=== PATIENT | female | born 1930 | race African-American/Black ===

== ENCOUNTER 2017-04-18 10:36 | Emergency (ER) | payer MEDICARE | END 2017-04-18 14:13 | disposition home or self-care (01) | LOC: D.ER 10:36 | DX: H81.10 Benign paroxysmal vertigo, unspecified ear (principal); I10 Essential (primary) hypertension; E11.9 Type 2 diabetes mellitus without complications ==

== ENCOUNTER → 2017-06-11 19:14 | Outpatient (CLI) | payer MEDICARE | END | disposition home or self-care (01) | LOC: D.LABREF 19:14 | DX: E53.8 Deficiency of other specified B group vitamins (principal) ==

== ENCOUNTER 2017-07-04 06:54 | Inpatient (IN) | payer MEDICARE ==
[2017-07-04 02:08] VITALS: BP 93/79
[2017-07-04 07:34] LABS: BASOPHILS 0.2 % (0-2); EOSINOPHILS 1.6 % (0-7); HEMATOCRIT 20.2 % (36.0-48.0); IMMATURE GRANULOCYTES 0.5 % (0-5); MCHC 30.2 g/dL (31.0-37.0); MCV 99.5 fL (80.0-100.0); MEAN PLATELET VOLUME 9.6 fL (7.4-10.4); MONOCYTES 4.1 % (2-11); NEUTROPHILS 77.6 % (40-80); PLATELET COUNT 194 10x3/uL (130-400); RBC 2.03 10x6/uL (4.00-5.40); RDW 13.6 % (11.5-14.5); WBC 9.8 10x3/uL (4.8-10.8)
[2017-07-04 07:37] LABS: HEMOGLOBIN 6.1 g/dL (12-16)
[2017-07-04 07:48] LABS: ALBUMIN 2.5 g/dL (3.4-5.0); ANION GAP 18.5 mmol/L (8-16); BILIRUBIN - TOTAL 0.1 mg/dL (0.2-1.3); CALCIUM 8.2 mg/dL (8.5-10.1); CARBON DIOXIDE 17.1 mmol/L (21.0-32.0); CREATININE - SERUM 2.5 mg/dL (0.6-1.3); POTASSIUM - SERUM 4.6 mmol/L (3.5-5.1); PROTEIN - SERUM 5.8 g/dL (6.4-8.2)
[2017-07-04 07:56] LABS: MAGNESIUM - SERUM 2.6 mg/dL (1.8-2.4); THYROID STIMULATING HORMONE 3.97 uIU/mL (0.36-3.74)
[2017-07-04 08:00] VITALS: BP 123/63
[2017-07-04 08:27] LABS: INR 1.17 (0.85-1.17); PROTIME 14.8 SECONDS (11.6-15.0)
[2017-07-04] MEDS ORDERED: NORVASC10 MG PO (09:15)
[2017-07-04] MEDS ORDERED: METFORMIN HCL500 M1 PO (09:16)
[2017-07-04] MEDS ORDERED: HYDROCHLOROTHIA25 MG PO (09:16)
[2017-07-04] MEDS ORDERED: MECLIZINE HCL25 MG PO (09:17)
[2017-07-04] MEDS ORDERED: PRAVACHOL40 MG PO (09:17)
[2017-07-04 10:02] VITALS: BP 138/68; BMI 25.1
--- NOTE | 2017-07-04 10:34 | NUR ---
22 GUAGE PIV INSERTED INTO R.FA X1 STICK FOR PTS PROTONIX DRIP. WAITING ON PHARMACY TO BRING UP. PT A&O SITTING UP IN BED RECIEVING BLOOD TRANSFUSION VIA L.FA PIV WITH DAINA CDI AND SWAB CAPS IN USE. NO REACTION NOTED YET AND VSS THROUGHOUT TRANSFUSION. AT BEDSIDE ASSESSING AND TALKING WITH PT ABOUT ISSUES. PT DENIES ANY CURRENT PAIN OR NEEDS, CL IN REACH, BED IN LOWEST, SIDE RAILS X2. WILL CPOC.
--- NOTE | 2017-07-04 10:51 | NUR ---
D/C PTS BRAND NEW PROTONIX DRIP ORDERED AND PROVIDED PT WITH NEW DOSE OF IVP PROTONIX. PT SITTING UP IN BED ALMOST FINISHED WITH FIRST BLOOD TRANSFUSION STILL WITHOUT ANY NOTED REACTIONS AND VSS. PT DENIES ANY CURRENT NEEDS. WILL CPOC.
[2017-07-04 11:00] VITALS: BP 152/63
--- NOTE | 2017-07-04 11:53 | NUR ---
FIRST UNIT OF BLOOD TRANSFUSION COMPLETED AND VSS THROUGHOUT ENTIRE TRANSFUSION. NO REACTIONS NOTED. FSBS 166 PT REC'D 2 UNITS PER SS INSULIN. TEACHING PROVIDED INSULIN IS NEW FOR HER. PT VERBALIZED UNDERSTANDING. ADMINISTERED PRN LASIX ORDERED TO GO BETWEEN UNITS OF BLOOD. WILL BEGIN NEXT TRANSFUSION SHORTLY. NO FURTHER NEEDS AT THIS TIME. CL IN REACH, BED IN LOWEST, SIDE RAILS X2. WILL CPOC.
--- NOTE | 2017-07-04 13:25 | NUR ---
TRANSFUSION 2/3 INTIATED. VS 98.0 HR 93 RR 18 BP 140/65. ASSISTED PT TO BR AND SHE VOIDED 300ML CLEAR YELLOW URINE. PT DENIES ANY CURRENT PAIN OR FURTHER NEEDS AT THIS TIME. CL IN REACH, BED IN LOWEST, SIDE RAILS X2. WILL CPOC.
--- NOTE | 2017-07-04 13:40 | NUR ---
NO REACTION NOTED AFTER FIRST 15 MINS OF TRANSFUSION. VSS AND BEING MONITERED. NO NEEDS AT THIS TIME. WILL CPOC.
--- NOTE | 2017-07-04 14:40 | HP ---
PATIENT: SANTINO VALIENTE MEDICAL RECORD: [id number] ACCOUNT: [id number] LOCATION:[address] : 30 ADMISSION DATE: 07/04/17 HISTORY AND PHYSICAL EXAMINATION DATE OF ADMISSION: 07/04/2017 CHIEF COMPLAINT: Syncope. HISTORY OF PRESENT ILLNESS: The patient is an 87-year-old -Portuguese female who states that her son apparently found her after she had became extremely dizzy last night, passed out, presented to the Emergency Room where she was found to be severely anemic. The patient states that approximately a month ago, she was seen in the Emergency Room at [facility], was told that she had vertigo. Then a short time thereafter went to [facility], it was still the same. The patient states at the present time she is doing well. PAST MEDICAL HISTORY: Significant that she has had a history of having hypertension. She has also had a history of having diabetes mellitus, hyperlipidemia, dependent edema, history of anemia, postmenopausal syndrome. She has had hemorrhoidectomy, cholecystectomy, appendectomy. She had had a colonoscopy many years ago by Dr. Regan. 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 FAMILY HISTORY: Sister has diabetes mellitus. Mother at age 32 of pneumonia. Father of unknown causes. MEDICATIONS: Include amlodipine 10 mg once a day, B12 1000 mcg every day, hydrochlorothiazide 25 mg once a day, meclizine 25 mg p.o. q.6 hours p.r.n. dizziness, metformin 1000 mg p.o. b.i.d., pravastatin 40 mg once a day. SOCIAL HISTORY: The patient is educated through the 12th grade. She is , heterosexual. 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 She was born and raised in [facility] [place]. ALLERGIES: She has no known drug allergies. REVIEW OF SYSTEMS: CONSTITUTIONAL: She denies any headaches, seizures, or syncope. She denies change in visual or auditory acuity. PULMONARY: She denies any shortness of breath, cough or congestion, history of TB, asthma or bronchitis. CARDIOVASCULAR: She has had no chest pain, palpitation, PND, orthopnea. GASTROINTESTINAL: No chronic nausea, vomiting, melena, or hematochezia. GENITOURINARY: No urgency, frequency, or dysuria. PHYSICAL EXAMINATION: VITAL SIGNS: In the Emergency Room, the patient's temperature was 96.4, pulse 84, respirations are 18, blood pressure 149/54, O2 sat was 98% on room air. GENERAL: She is alert. She is oriented times 3. HEENT: Head is normocephalic. No lesions. Ears: TMs clear. Eyes: Pupils equal, round and reactive to light. Her extraocular movements are intact. Her nasal cavity, oral cavity, and oropharynx are clear. NECK: Supple. There is no adenopathy. HEART: Has a regular rate and rhythm without any murmurs, gallops or rubs. HISTORY AND PHYSICAL [id number] SANTINO VALIENTE LUNGS: Clear. ABDOMEN: Soft, bowel sounds positive. No organomegaly. Apparently, the patient had a rectal exam in the Emergency Room, which shows stool guaiac to be positive. LABORATORY DATA: The patient had a white count of 9.8, hemoglobin was 6.1, hematocrit was 20.2, platelets were 194. She had a BUN of 97, creatinine is 2.5, glucose 240. Iron is 124. Liver functions were within normal limits. The patient has slight elevation in her TSH. She had a PT of 14.8, INR of 1.17. ASSESSMENT: 1. Profound anemia. 2. Acute renal failure. 3. Diabetes mellitus. 4. Hypothyroidism. PLAN: The patient is admitted. She will be typed and crossed for 2 units of packed red blood cells. GI consultation will be obtained. We will have H&Hs q.6 hours. TRANSINT:[id number] Voice Confirmation ID: [id number] DOCUMENT ID: [id number] BEHZAD HODGES MD at 1440 CC: [id number] DICTATION DATE: 07/04/17 1042 TRANSMISSION WORKER: 07/04/17 1113 ADM IN [facility] [address] [place] [address]
[2017-07-04 15:04] VITALS: BP 160/69
--- NOTE | 2017-07-04 15:22 | NUR ---
ASSISTED PT TO BR. PT VOIDED WITHOUT ANY DIFFICULTIES. PT BACK IN BED AND DENIES ANY NEEDS AT THIS TIME. BLOOD TRANSFUSING WITHOUT ANY ISSUES. WILL CPOC.
--- NOTE | 2017-07-04 16:09 | NUR ---
BLOOD TRANSFUSION 2/3 COMPLETED AND NO REACTIONS NOTED THROUGHOUT TRANSFUSION. VSS. PRN LASIX GIVEN ORDERED BETWEEN UNITS. WILL INITIATE LAST UNIT SHORTLY. FSBS 179 PT REC'D 2 UNITS PER SS INSULIN. PT LYING BACK IN BED RESTING QUIETLY AND DENIES ANY FURTHER NEEDS AT THIS TIME. WILL CPOC.
--- NOTE | 2017-07-04 17:45 | NUR ---
BLOOD TRANSFUSION 3/ INTIATED VIA L.FA PIV. PT SITTING UP EATING DINNER TRAY. PT DENIES ANY CURRENT PAIN OR NEEDS. CL IN REACH, BED IN LOWEST, SIDE RAILS X2 WILL CPOC.
--- NOTE | 2017-07-04 19:40 | NUR ---
RECEIVED REPORT, WILL ASSUME CARE OF PT, PT RECEIVING PRBC, DENIES ANY NEEDS, BED IS LOW, SRX2, CALL LIGHT IN REACH, WILL CONTINUE PLAN OF CARE,
[2017-07-04 22:09] LABS: HEMOGLOBIN 10.8 g/dL (12-16)
[2017-07-05] VITALS (7 sets, daily range): BP systolic 143–176; BP diastolic 57–87; BMI 25.0
--- NOTE | 2017-07-05 03:27 | NUR ---
ASSESSMENT COMPLETE, SEE FLOWSHEET, BED IS LOW, SRX2, CALL LIGHT IN REACH, WILL CONTINUE PLAN OF CARE
[2017-07-05 05:39] LABS: BASOPHILS 0.1 % (0-2); EOSINOPHILS 3.8 % (0-7); HEMATOCRIT 28.6 % (36.0-48.0); HEMOGLOBIN 9.9 g/dL (12-16); IMMATURE GRANULOCYTES 0.6 % (0-5); LYMPHOCYTES 23.6 % (15-50); MCHC 34.6 g/dL (31.0-37.0); MEAN PLATELET VOLUME 10.2 fL (7.4-10.4); MONOCYTES 7.5 % (2-11); NEUTROPHILS 64.4 % (40-80); PLATELET COUNT 159 10x3/uL (130-400); RDW 15.7 % (11.5-14.5); WBC 8.8 10x3/uL (4.8-10.8)
[2017-07-05 05:47] LABS: ANION GAP 17.1 mmol/L (8-16); CALCIUM 8.4 mg/dL (8.5-10.1); CREATININE - SERUM 2.3 mg/dL (0.6-1.3); POTASSIUM - SERUM 4.1 mmol/L (3.5-5.1)
[2017-07-05 05:48] LABS: MCV 86.7 fL (80.0-100.0)
--- NOTE | 2017-07-05 09:53 | NUR ---
AM ROUNDS COMPLETED. SHIFT ASSESSMENT COMPLETED. PT REMEMBERS ME HER PRIMARY RN FROM YESTERDAY. R.FA PIV VERY SWOLLEN AND HAS INFILTRATED, D/C WITH CATH TIP FULLY INTACT. L.FA PIV FLUSHED AND VERY PAINFUL AND ALSO INFILTRATED D/C WITH CATH TIP FULLY INTACT. PTS H/H 9.07/01 SO PER FLOWER MESSAGE FROM DOCTOR PT WILL NEED 1 UNIT OF BLOOD. PT STATES SHE HAD A BM THIS MORNING THAT WAS VERY DARK IN COLOR. EGD CONSENTS SIGNED AND OBTAINED IN CHART. PT NOW NPO AND VERBALIZED UNDERSTANDING. PTS BP ELEVATED AND SHE HAS A PRN MEDICATION FOR SBP>170 AND I WILL PROVIDE THAT THEN RECHECK BP. WILL GAIN PIV ACCESS AND INTIATE BLOOD WHEN LAB HAS IT AVAILABLE. PT DENIES ANY CURRENT PAIN OR NEEDS. CL IN REACH, BED IN LOWEST, SIDE RAILS X2. WILL CPOC.
--- NOTE | 2017-07-05 10:24 | NUR ---
20 GUAGE PIV INSERTED INTO L.FA X1 STICK. NS @50ML/HR CURRENTLY INFUSING, WAITING ON BLOOD FROM BB.
[2017-07-05 11:03] LABS: HEMATOCRIT 29.4 % (36.0-48.0); HEMOGLOBIN 10.1 g/dL (12-16)
--- NOTE | 2017-07-05 12:15 | NUR ---
INTIATED BLOOD TRANSFUSION VIA L.FA PIV. PRE VITALS STABLE AND STAYED IN ROOM FOR FIRST 15 MINS AND NO REACTION NOTED. THIS IS PTS 4TH UNIT OF BLOOD FOR HER STAY. PT RESTING IN BED AND DENIES ANY CURRENT NEEDS AND IS JUST READY TO GET HER EGD DONE. CL IN REACH. WILL CPOC.
--- NOTE | 2017-07-05 15:30 | NUR ---
BLOOD TRANSFUSION COMPLETED. VSS THROUGHOUT ENTIRE TRANSFUSION. NO REACTION NOTED. ASSISTED PT TO BR AND SHE HAD DARK SEMI FORMED STOOL. PT BACK IN BED AND AWAITING EGD. NO FURTHER NEEDS AT THIS TIME.
--- NOTE | 2017-07-05 16:04 | NUR ---
GI LAB CALLED FOR ME TO PRE-OP PT. NO PRE-OP MEDS HAVE BEEN ORDERED, CALLED GI TO NOTIFY THEM AND THEY ARE AWARE AND ON THE WAY TO PARTY COORDINATOR PT. FSBS 135 NO COVERAGE NEEDED. GI TEAM HERE NOW FOR PT. PT LEAVING UNIT. WILL CPOC.
--- NOTE | 2017-07-05 18:08 | NUR ---
PT BACK FROM EGD AND NOTHING WAS FOUND SO PT WILL NEED A COLONOSCOPY. SCHEDULDED IT FOR TOMORROW AT 1400. PT VERBALIZED UNDERSTANDING. PT WILL NEED GOLYTELY PREP AND WE ARE CURRENTLY WAITING ON PHARMACY TO BRING IT UP. PT EATING DINNER NOW, CLEAR LIQUID DIET UNTIL AFTER PROCEDURE TOMORROW. PT RESTING IN BED AND DENIES ANY CURRENT NEEDS. CL IN REACH, BED IN LOWEST, SIDE RAILS X2. WILL CPOC.
--- NOTE | 2017-07-05 19:57 | NUR ---
RESUMED CARE OF PT, LYING IN BED RESPIRATIONS EVEN AND UNLABORED ON ROOM AIR. NO NEEDS NOTED AT THIS TIME, CALL LIGHT IN REACH. WILL CONTINUE TO MONITOR. SEE NURSE ASSESSMENT.
--- NOTE | 2017-07-05 21:45 | NUR ---
REFUSING TO DRINK GOLYTLY, STATES "I DON'T WANT TO BE POOPING ALL NIGHT LONG." SAYS SHE WILL START DRINKING IT AT 0400. WILL CONTINUE TO MONITOR. CALL LIGHT IN REACH. REPOSITIONED FOR COMFORT.
[2017-07-06] VITALS: BP 167/76
[2017-07-06 04:00] VITALS: BP 195/90
--- NOTE | 2017-07-06 04:25 | NUR ---
MARGIN ANALYST AT BEDSIDE TO OBTAIN VITALS, CALL LIGHT IN REACH. WILL CONTINUE WITH PLAN OF CARE.
[2017-07-06 04:31] LABS: ALBUMIN 2.7 g/dL (3.4-5.0); ANION GAP 13.6 mmol/L (8-16); BILIRUBIN - TOTAL 0.3 mg/dL (0.2-1.3); CALCIUM 8.8 mg/dL (8.5-10.1); CARBON DIOXIDE 21.3 mmol/L (21.0-32.0); CREATININE - SERUM 1.9 mg/dL (0.6-1.3); POTASSIUM - SERUM 3.9 mmol/L (3.5-5.1)
--- NOTE | 2017-07-06 06:34 | NUR ---
NO CHANGES FROM PREVIOUS ASSESSMENT, COLONOSCOPY PREP IN PROGRESS. TOLERATING WELL. WILL CONTINUE TO MONITOR.
--- NOTE | 2017-07-06 07:10 | NUR ---
RECEIVED REPORT. ASSUMED CARE OF PATIENT. CALL LIGHT WITHIN REACH. PATIENT ALERT & ORIENTED. LYING IN BED. PATIENT HAS CONSUMED ALL BUT ABOUT 500ML OF GOLYTELY. RESP EVEN AND UNLABORED. IV FLUIDS INFUSING ORDERED. NO DISTRESS.
[2017-07-06 08:00] VITALS: BP 174/60; BP 194/75
--- NOTE | 2017-07-06 10:02 | NUR ---
20 GAUGE IV REMOVED FROM LEFT FOREARM. CATHETER TIP INTACT. NO BLEEDING FROM SITE. 2X2 GAUZE APPLIED AND SECURED WITH TAPE. NO DISTRESS.
--- NOTE | 2017-07-06 10:08 | NUR ---
MURALI RN ASKED ME TO SITE PT PIV. REMOVED INFILTRATED PIV IN LEFT FA WITH CATH TIP INTACT. ASSESSED BILATERAL ARMS FOR AVAILABLE IV ACCESS. I DO NOT SEE ANYTHING THAT I WOULD BE ABLE TO SITE PIV SUCCESSFULLY. ANABELA COLEMAN VAS ACCESS ON FLOOR, ASKED HER IF SHE WOULD GO IN AND SITE PT.
--- NOTE | 2017-07-06 11:09 | NUR ---
FSBS 143. NO INSULIN COVERAGE REQUIRED. PATIENT IS NPO FOR PROCEDURE AT THIS TIME.
[2017-07-06 12:03] VITALS: BP 100/70
--- NOTE | 2017-07-06 12:51 | NUR ---
1240 CONSENTS SIGNED AND PLACED ON CHART AT THIS TIME. GI HERE TO RETRIEVE PATIENT AT THIS TIME.
--- NOTE | 2017-07-06 13:41 | NUR ---
RECEIVED REPORT FROM GT. PATIENT SHOULD BE BACK TO UNIT SOON. NO ACTIVE BLEEDING FOUND DURING COLONSCOPY. GOOD REPORT RECEIVED.
--- NOTE | 2017-07-06 14:28 | NUR ---
SPOKE WITH GABINO IN PHARMACY TO REPORT THERE IS NO PROTONIX IN THE MED2 PYSIX AND HE STATED OKAY IT WOULD BE FILLED.
[2017-07-06 15:54] VITALS: BP 165/68
--- NOTE | 2017-07-06 15:57 | NUR ---
10MG HYDRALAZINE ADMINISTERED FOR BP 195/101. BP NOW 165/68. CALL LIGHT WITHIN REACH. NO DISTRESS.
--- NOTE | 2017-07-06 16:44 | NUR ---
FSBS 162. PATIENT REFUSED HER INSULIN. WANTS TO WAIT AND SEE IF GLUCOSE WILL GO DOWN ON ITS OWN AT 2100 GLUCOSE CHECK.
--- NOTE | 2017-07-06 18:49 | NUR ---
REPORT GIVEN TO ONCOMING NURSE. NO DISTRESS.
[2017-07-06 19:00] VITALS: BP 166/75
--- NOTE | 2017-07-06 19:23 | NUR ---
PT RESTING IN BED. FSBS IS 300, RECHECKED FSBS 297. PT HAS NS INFUSING TO RIGHT HAND AT 50. PT DINNER INTAKE 20% 200ML PT ASKS FOR BED TO BED TO BE STRAIGHTEND UP. DONE REQUESTED. PT DENIES ANY OTHER NEEDS. STATES SHE IS CONCERNED ABOUT BLOOD SUGAR. STATES SHE DOES NOT TAKE INSULIN AT HOME AND IS SCARED THAT IF SHE TAKES THE INSULIN SHE WILL BOTTOM OUT. PT DENIES ANY OTHER NEEDS. NO S/S OF DISTRESS. WILL CPOC
--- NOTE | 2017-07-06 20:20 | NUR ---
PT TAKING 3 UNITS TO LEFT ARM. WILL CHECK BLOOD SUGAR IN AM UNLESS NEEDED SOONER. PT DENIES ANY NEEDS. NO S/S OF DISTRESS. WILL CPOC
[2017-07-07] VITALS: BP 156/63
--- NOTE | 2017-07-07 01:45 | NUR ---
PT RESTING IN BED. WOKE WHEN OPENED THE DOOR. PT DENIES ANY NEEDS. NO S/S OF DISTRESS. WILL CPOC
[2017-07-07 04:00] VITALS: BP 147/69
--- NOTE | 2017-07-07 04:58 | NUR ---
PT DENIES ANY NEEDS. PT HAS BEEN NPO SINCE MIDNITE. PT HAS NO S/S OF DISTRESS. WILL CPOC
[2017-07-07 05:07] LABS: BASOPHILS 0.2 % (0-2); EOSINOPHILS 4.7 % (0-7); HEMOGLOBIN 10.9 g/dL (12-16); LYMPHOCYTES 22.2 % (15-50); MCH 30.4 pg (26.0-34.0); MCHC 34.1 g/dL (31.0-37.0); MCV 89.4 fL (80.0-100.0); MEAN PLATELET VOLUME 9.2 fL (7.4-10.4); MONOCYTES 9.3 % (2-11); NEUTROPHILS 63.6 % (40-80); PLATELET COUNT 157 10x3/uL (130-400); RBC 3.58 10x6/uL (4.00-5.40); RDW 15.5 % (11.5-14.5); WBC 5.6 10x3/uL (4.8-10.8)
[2017-07-07 05:37] LABS: ALBUMIN 2.9 g/dL (3.4-5.0); ANION GAP 14.1 mmol/L (8-16); BILIRUBIN - TOTAL 0.4 mg/dL (0.2-1.3); CALCIUM 8.7 mg/dL (8.5-10.1); CARBON DIOXIDE 22.8 mmol/L (21.0-32.0); CREATININE - SERUM 1.8 mg/dL (0.6-1.3); MAGNESIUM - SERUM 1.9 mg/dL (1.8-2.4); POTASSIUM - SERUM 3.9 mmol/L (3.5-5.1)
--- NOTE | 2017-07-07 06:36 | NUR ---
PT RESTING ON LEFT SIDE. INFORMED PT OF GLUCOSE LEVELS THIS MORNING, FSBS 122 NO COVERAGE NEEDED. PT SHOWS EXCITEMENT THAT THE PLAN FROM LAST NIGHT WORKED. PT DENIES ANY NEEDS. NO S/S OF DISTRESS. WILL CPOC
--- NOTE | 2017-07-07 07:16 | NUR ---
AM ROUNDS- PT IN BED, DENIES ANY NEEDS AT THIS TIME. RESP EVEN AND UNLABORED. RT HAND IV SL. BED LOW AND WHEELS LOCKED, BEDSIDE RAILS X2, CALL LIGHT IN REACH, NAD NOTED, WILL CONTINUE TO MONITOR.
[2017-07-07 08:16] VITALS: BP 183/75
--- NOTE | 2017-07-07 08:30 | NUR ---
PT TRANSFERED TO X-RAY, VIA WHEELCHAIR, NAD NOTED.
--- NOTE | 2017-07-07 10:19 | NUR ---
PT TRANSFERED BACK TO ROOM 2136 VIA WHEELCHAIR.
[2017-07-07 11:45] VITALS: BP 149/73
--- NOTE | 2017-07-07 11:50 | NUR ---
BLOOD SUGAR OF 235, 4UNITS GIVEN PER S/S. HELPED PT TO BATHROOM AND BACK TO BED. PT DENIES ANY NEEDS AT THIS TIME. CALL LIGHT IN REACH, SAMINA BULLOCK, WILL CONTINUE TO MONITOR.
[2017-07-07 16:00] VITALS: BP 156/69
--- NOTE | 2017-07-07 16:39 | NUR ---
BLOOD SUGAR OF 127, NO COVERAGE NEEDED PER S/S. PT IN BED, WATCHING TV. DENIES ANY NEEDS AT THIS TIME. CALL LIGHT IN REACH, NAD NOTED, WILL CONTINUE TO MONITOR.
--- NOTE | 2017-07-07 19:40 | NUR ---
PT RESTING IN BED. 1/2 NS INFUSING TO RIGHT HAND AT 50ML/HR. PT STATES SHE HAD A GOOD DAY, BUT SHE IS READY TO GO HOME SO SHE CAN EAT SOME REAL FOOD. PT STATES SHE FINALLY ATE SOME FOOD FOR DINNER BECAUSE SHE WAS STARVING... 90% 240 FOR DINNER INTAKE. PT DENIES ANY NEEDS. NO S/S OF DISTRESS. BED LOW AND CALL LIGHT IN REACH. WILL CPOC
[2017-07-07 20:00] VITALS: BP 171/77
--- NOTE | 2017-07-07 21:17 | NUR ---
S/L PT RITH HAND IV. PT ASKED TO BE UNHOOKED SO SHE COULD SLEEP. PT DENIES ANY NEEDS. AT THIS TIME. NO S/S OF DISTRESS. WILL CPOC
[2017-07-08 04:00] VITALS: BP 164/76
[2017-07-08 04:23] LABS: BASOPHILS 0.4 % (0-2); EOSINOPHILS 5.8 % (0-7); HEMATOCRIT 32.2 % (36.0-48.0); HEMOGLOBIN 10.7 g/dL (12-16); MCH 30.1 pg (26.0-34.0); MCHC 33.2 g/dL (31.0-37.0); MCV 90.7 fL (80.0-100.0); MEAN PLATELET VOLUME 9.4 fL (7.4-10.4); MONOCYTES 12.2 % (2-11); NEUTROPHILS 60.6 % (40-80); PLATELET COUNT 178 10x3/uL (130-400); RBC 3.55 10x6/uL (4.00-5.40); RDW 15.2 % (11.5-14.5); WBC 5.4 10x3/uL (4.8-10.8)
[2017-07-08 04:46] LABS: ANION GAP 14.8 mmol/L (8-16); CALCIUM 8.7 mg/dL (8.5-10.1); CARBON DIOXIDE 22.1 mmol/L (21.0-32.0); CREATININE - SERUM 1.8 mg/dL (0.6-1.3); POTASSIUM - SERUM 3.9 mmol/L (3.5-5.1)
--- NOTE | 2017-07-08 06:35 | NUR ---
PT RESTING IN BED. SPEAKS OF WANTING TO GO HOME TODAY. PT DENIES ANY NEEDS. NO S/S OF DISTRESS. WILLCPOC
[2017-07-08] MEDS ORDERED: PROTONIX40 MG PO (06:57)
--- NOTE | 2017-07-08 07:30 | NUR ---
REPORT RECIEVED. RR EVEN AND UNLABORED, PT DENIES NEEDS AT THIS TIME. DISCUSSED D/C WITH PATIENT. PT APPEARS EXCITED TO BE GOING HOME TODAY, PT COMPLAINING OF NECK PAIN DUE TO "THE WAY SHE SLEPT ON IT." WILL CTM.
[2017-07-08 08:00] VITALS: BP 175/78
--- NOTE | 2017-07-08 09:11 | NUR ---
CHECKED PTS BP PRIOR TO ADMINISTERING PRN BP MED. JACINTO 186/76. WILL GIVE ALL MORNING MEDS AND PRN AND RECHECK BP IN 15-30 MINUTES.
--- NOTE | 2017-07-08 10:30 | NUR ---
RECHECKED PTS BP CURRENTLY 173/75. PT DENIES STREET. WILL CTM.
--- NOTE | 2017-07-08 11:02 | NUR ---
PT DISCHARGED. IV CATHETER REMOVED WITH CATHETER TIP INTACT. D/C INSTRUCTIONS PROVIDED, PT VERBALIZED UNDERSTANDING. PT DENIES FURTHER NEEDS. WILL CALL SON TO COME AND PICK PT UP. WILL CTM UNTIL PT LEAVES FACILITY.
--- NOTE | 2017-07-08 11:16 | NUR ---
Patient Name: SANTINO VALIENTE Admission Status: ER Accout number: [id number] Admission Date: 07-04-2017 : 1930 Admission Diagnosis:GASTROINTESTINAL HEMORRHAGE, UNSPECIFIED Attending: Ramin Helm Current LOS: 4 Anticipated DC Date: 07-08-2017 Planned Disposition: Home Primary Insurance: [facility] Discharge Planning Comments: * Is the patient Alert and Oriented? Yes 0 * How many steps to enter\exit or inside your home? 1 0 * PCP DR. HELM 0 * Pharmacy [facility]. 0 * Preadmission Environment Home with Family 0 * ADLs Independent 0 * Equipment Cane Walker 0 * Other Equipment NO MEDICAL EQUIPMENT PROVIDER PREFERENCE 0 * List name and contact numbers for known caregivers / representatives who currently or will assist patient after discharge: KYAW VALIENTE, SON, 0 * Community resources currently utilized Meals on Wheels 0 * Please name any agencies selected above. PT IS NOT SURE WHAT AGENCY PROVIDES HER MEALS ON WHEELS 0 * Additional services required to return to the preadmission environment? No 0 * Can the patient safely return to the preadmission environment? Yes 0 * Has this patient been hospitalized within the prior 30 days at any hospital? No 0 CM RECEIVED DISCHARGE ORDER, MET WITH PT IN ROOM TO DISCUSS DISCHARGE PLANNING AND NEEDS. PT REPORTS LIVING AT HOME INDEPENDENTLY WITH HER ADULT SON. PT HAS CANE AND WALKER AT HOME IF SHE NEEDS IT, HAS NO MEDICAL EQUIPMENT PROVIDER PREFERENCE AND NO OUTSIDE SERVICES ASSISTING IN THE HOME OTHER THAN MEALS ON WHEELS DELIVERY. CM DISCUSSED AVAILABILITY OF HOME HEALTH, REHAB SERVICES AND MEDICAL EQUIPMENT. PT DENIES DISCHARGE NEEDS, REPORTS HER SON WILL PICK HER UP FOR DISCHARGE HOME. PT REPORTS HER DAUGHTER HAS TRIED TO ASSIST HER WITH MEDICAID APPLICATION BUT PT HAS DECIDED THAT IT IS TOO MUCH WORK. CM ENCOURAGED PT TO CONTINUE WITH THE APPLICATION PROCESS AND DISCUSSED, IF PT QUALIFIES, THE BENEFITS THAT MEDICAID PROVIDES SUCH TRANSPORATION AND IN HOME SERVICES. IMPORTANT MESSAGE FROM MEDICARE PROVIDED AND EXPLAINED. Rough Patcher: Michael Magdaleno
== END 2017-07-08 11:44 | disposition home or self-care (01) | DRG 378 ==
LOC: D.ER 06:54 → D.M2 08:22
PROVIDERS: Emergency Medicine; Family Medicine; ADMIT Family Medicine
PROC: 0DB98ZX Excision of Duodenum, Via Natural or Artificial Opening Endoscopic, Diagnostic (ICD-10-PCS; principal; 2017-07-04)
PROC: 0DB78ZX Excision of Stomach, Pylorus, Via Natural or Artificial Opening Endoscopic, Diagnostic (ICD-10-PCS; 2017-07-04)
PROC: 0DJD8ZZ Inspection of Lower Intestinal Tract, Via Natural or Artificial Opening Endoscopic (ICD-10-PCS; 2017-07-06)
DX: K92.2 Gastrointestinal hemorrhage, unspecified (principal); N17.9 Acute kidney failure, unspecified; D64.9 Anemia, unspecified; K29.00 Acute gastritis without bleeding; K44.9 Diaphragmatic hernia without obstruction or gangrene; K64.8 Other hemorrhoids; K57.90 Diverticulosis of intestine, part unspecified, without perforation or abscess without bleeding; E03.9 Hypothyroidism, unspecified; E11.22 Type 2 diabetes mellitus with diabetic chronic kidney disease; I12.9 Hypertensive chronic kidney disease with stage 1 through stage 4 chronic kidney disease, or unspecified chronic kidney disease; N18.2 Chronic kidney disease, stage 2 (mild); E78.5 Hyperlipidemia, unspecified; Z78.0 Asymptomatic menopausal state; R55 Syncope and collapse

== ENCOUNTER → 2017-09-13 12:59 | Outpatient (CLI) | payer MEDICARE ==
[2017-07-05 10:43] VITALS: BMI 25.0
[~2017-09-13 12:59] MED LIST: HYDROCHLOROTHIA25 MG PO; MECLIZINE HCL25 MG PO; METFORMIN HCL500 M1 PO; NORVASC10 MG PO; PRAVACHOL40 MG PO; PROTONIX40 MG PO
[2017-09-13 14:53] LABS: ANION GAP 17.6 mmol/L (8-16); CALCIUM 8.9 mg/dL (8.5-10.1); CARBON DIOXIDE 23.6 mmol/L (21.0-32.0); CREATININE - SERUM 2.5 mg/dL (0.6-1.3)
[2017-09-13 15:00] LABS: POTASSIUM - SERUM 6.2 mmol/L (3.5-5.1)
== END | disposition home or self-care (01) ==
LOC: D.LABREF 12:59
PROVIDERS: Family Medicine
DX: E11.22 Type 2 diabetes mellitus with diabetic chronic kidney disease (principal)

== ENCOUNTER → 2017-09-14 16:50 | Outpatient (CLI) | payer MEDICARE ==
[2017-07-05 10:43] VITALS: BMI 25.0
[2017-09-14 18:58] LABS: BASOPHILS 0.2 % (0-2); EOSINOPHILS 2.6 % (0-7); HEMATOCRIT 34.2 % (36.0-48.0); HEMOGLOBIN 10.9 g/dL (12-16); IMMATURE GRANULOCYTES 0.2 % (0-5); LYMPHOCYTES 20.4 % (15-50); MCH 30.8 pg (26.0-34.0); MCHC 31.9 g/dL (31.0-37.0); MCV 96.6 fL (80.0-100.0); MEAN PLATELET VOLUME 11.4 fL (7.4-10.4); MONOCYTES 7.2 % (2-11); NEUTROPHILS 69.4 % (40-80); RBC 3.54 10x6/uL (4.00-5.40); RDW 14.7 % (11.5-14.5); WBC 5.8 10x3/uL (4.8-10.8)
[2017-09-14 19:01] LABS: PLATELET COUNT 279 10x3/uL (130-400)
[2017-09-14 19:11] LABS: ANION GAP 17.3 mmol/L (8-16); CALCIUM 9.1 mg/dL (8.5-10.1); CARBON DIOXIDE 23.5 mmol/L (21.0-32.0); CREATININE - SERUM 2.8 mg/dL (0.6-1.3); POTASSIUM - SERUM 5.8 mmol/L (3.5-5.1)
== END | disposition home or self-care (01) ==
LOC: D.LABREF 16:50
PROVIDERS: Family Medicine
DX: E11.22 Type 2 diabetes mellitus with diabetic chronic kidney disease (principal); I12.9 Hypertensive chronic kidney disease with stage 1 through stage 4 chronic kidney disease, or unspecified chronic kidney disease

== ENCOUNTER → 2017-09-30 15:56 | Outpatient (CLI) | payer MEDICARE ==
[2017-07-05 10:43] VITALS: BMI 25.0
[2017-09-30 16:24] LABS: ANION GAP 16.3 mmol/L (8-16); CALCIUM 9.1 mg/dL (8.5-10.1); CARBON DIOXIDE 23.3 mmol/L (21.0-32.0); CREATININE - SERUM 2.2 mg/dL (0.6-1.3); POTASSIUM - SERUM 4.6 mmol/L (3.5-5.1)
== END | disposition home or self-care (01) ==
LOC: D.LABREF 15:56
PROVIDERS: Family Medicine
DX: E11.22 Type 2 diabetes mellitus with diabetic chronic kidney disease (principal); I12.9 Hypertensive chronic kidney disease with stage 1 through stage 4 chronic kidney disease, or unspecified chronic kidney disease

== ENCOUNTER 2018-01-20 22:42 | Emergency (ER) | payer MEDICARE ==
[2017-07-05 10:43] VITALS: BMI 25.0
[2018-01-20 23:31] LABS: BASOPHILS 0.3 % (0-2); EOSINOPHILS 3.3 % (0-7); HEMATOCRIT 33.1 % (36.0-48.0); HEMOGLOBIN 10.7 g/dL (12-16); IMMATURE GRANULOCYTES 0.1 % (0-5); LYMPHOCYTES 17.9 % (15-50); MCH 29.8 pg (26.0-34.0); MCHC 32.3 g/dL (31.0-37.0); MCV 92.2 fL (80.0-100.0); MEAN PLATELET VOLUME 9.6 fL (7.4-10.4); NEUTROPHILS 71.4 % (40-80); PLATELET COUNT 246 10x3/uL (130-400); RBC 3.59 10x6/uL (4.00-5.40); RDW 13.6 % (11.5-14.5); WBC 7.3 10x3/uL (4.8-10.8)
[2018-01-20 23:44] LABS: INR 0.97 (0.85-1.17); PROTIME 12.5 SECONDS (11.6-15.0)
[2018-01-20 23:45] LABS: ALBUMIN 3.5 g/dL (3.4-5.0); ANION GAP 21.5 mmol/L (8-16); BILIRUBIN - TOTAL 0.21 mg/dL (0.2-1.3); CALCIUM 8.9 mg/dL (8.5-10.1); CARBON DIOXIDE 17.9 mmol/L (21.0-32.0); CREATININE - SERUM 2.9 mg/dL (0.6-1.3); POTASSIUM - SERUM 4.4 mmol/L (3.5-5.1); PROTEIN - SERUM 8.2 g/dL (6.4-8.2)
[2018-01-20 23:55] LABS: MAGNESIUM - SERUM 2.1 mg/dL (1.8-2.4); TROPONIN-I 0.041 ng/mL (0.000-0.060)
[2018-01-21 00:25] LABS: COLOR YELLOW (YELLOW)
[2018-01-21 00:26] LABS: APPEARANCE CLEAR (CLEAR); BILIRUBIN NEGATIVE (NEGATIVE); GLUCOSE NEGATIVE (NEGATIVE); KETONE NEGATIVE (NEGATIVE); NITRITE NEGATIVE (NEGATIVE); PROTEIN NEGATIVE (NEGATIVE); SPECIFIC GRAVITY 1.015 (1.005-1.020); UROBILINOGEN NORMAL (NORMAL)
== END 2018-01-21 01:50 | disposition home or self-care (01) ==
LOC: D.ER 22:42
PROVIDERS: Emergency Medicine; Nurse Practitioner Family
DX: I12.9 Hypertensive chronic kidney disease with stage 1 through stage 4 chronic kidney disease, or unspecified chronic kidney disease (principal); N18.9 Chronic kidney disease, unspecified; R53.1 Weakness; E11.9 Type 2 diabetes mellitus without complications; I45.10 Unspecified right bundle-branch block

== ENCOUNTER → 2018-02-08 12:49 | Outpatient (CLI) | payer MEDICARE ==
[2017-07-05 10:43] VITALS: BMI 25.0
--- NOTE | ~2018-02-08 | EC ---
PATIENT:SANTINO VALIENTE DATE OF SERVICE: 02/08/18 SEX: F MEDICAL RECORD: [id number] DATE OF : 30 LOCATION:D[facility] AGE OF PATIENT: 87 ADMISSION DATE: 02/08/18 REFERRING PHYSICIAN: INTERPRETING PHYSICIAN: LORNA OLIVAS MD ECHOCARDIOGRAM REPORT ECHO CHARGES 4 ECHO COMPLETE Date: 02/08 CLINICAL DIAGNOSIS: CHEST PAIN/DYSPNEA ECHOCARDIOGRAPHIC MEASUREMENTS (adult normal given) AC root (d.<3.7cm) 3.2 cm LV Septum d (<1.2 cm> 2.0 cm Valve Excursion 1.4 cm LV Septum (systole) 2.1 cm Left Atria (s.<4.0cm> 4.2 cm LVPW d(<1.2cm) 1.9 cm RV (d.<2.3cm) 4.6 cm LVPW (sytole) 2.0 cm LV diastole(<5.6CM) 4.2 cm MV E-F(>70mm/sec) cm LV systole 3.0 cm LVOT Diameter 1.5 cm MV exc.(>10mm) 2.2 cm Est.ejection fraction (50-75%) % DOPPLER: LVIT cm/sec A 103 cm/sec E 93.0 cm/sec LA cm/sec RVSP 50 mmHg LVOT 143 cm/sec AOP1/2T m/s Asc. Ao 204 cm/sec RVOT 100 cm/sec RA cm/sec PA 167 cm/sec AV Gradient Peak 16.64mmHg AV Mean 9.08 mmHg AV Area 1.3 cm MV Gradient Peak 6.29 mmHg MV Mean 1.88 mmHg MV Area cm COMMENTS: Body Component Engineer: 2 PIETER BARCENAS Ui Developer: 4 Dr. Olivas TAPE# PACS Pericardial Effusion N DATE OF SERVICE: PROCEDURE: Transthoracic echocardiogram. FINDINGS: 1. The patient appears to have moderate concentric left ventricular hypertrophy with inflow characteristics of diastolic dysfunction. 2. The left atrium is mildly dilated. 3. The aortic valve is sclerotic, but normal. 4. The mitral valve has mitral annular calcification and mild mitral ECHOCARDIOGRAM REPORT [id number] SANTINO VALIENTE regurgitation. 5. The tricuspid valve has moderate tricuspid regurgitation. RVSP between 40 and 50 mmHg. 6. The right ventricle is mild to moderately dilated, but normal function. 7. The right atrium is moderately dilated with normal function. 8. The pulmonic valve has trace pulmonic insufficiency. TRANSINT:[id number] Voice Confirmation ID: [id number] DOCUMENT ID: [id number] LORNA OLIVAS MD at 0819 CC: [id number] DICTATION DATE: 02/09/1824 STEEL TIER: 02/09/18 1240 DEP CLI 02/08/18 [place] [id number] [place] [id number]
== END | disposition home or self-care (01) ==
LOC: D.ECHO 12:49
DX: E11.9 Type 2 diabetes mellitus without complications (principal); E78.5 Hyperlipidemia, unspecified; R07.9 Chest pain, unspecified; R06.02 Shortness of breath; R09.89 Other specified symptoms and signs involving the circulatory and respiratory systems; I70.1 Atherosclerosis of renal artery

== ENCOUNTER → 2018-07-12 16:17 | Outpatient (CLI) | payer MEDICARE ==
[2017-07-05 10:43] VITALS: BMI 25.0
[2018-07-12 18:16] LABS: CHOL - HDL RATIO 4.5 ratio (2.3-4.1); LDL-HDL RATIO 2.6 ratio (1.5-3.5)
== END | disposition home or self-care (01) ==
LOC: D.LABREF 16:17
PROVIDERS: Internal Medicine Cardiovascular Disease
DX: I10 Essential (primary) hypertension (principal)

== ENCOUNTER 2018-07-29 12:38 | Outpatient (CLI) | payer MEDICARE ==
[~2018-07-29] VITALS: Ht 170.2 cm; Wt 78.6 kg
[2018-07-29 14:33] VITALS: BP 151/67; Ht 170.2 cm; Wt 78.6 kg
== END 2018-07-29 18:53 | disposition home or self-care (01) ==
LOC: D.OPS 12:38
DX: D64.9 Anemia, unspecified (principal); Z01.812 Encounter for preprocedural laboratory examination

== ENCOUNTER → 2018-10-03 10:35 | Outpatient (CLI) | payer MEDICARE ==
[2018-07-29 14:33] VITALS: BMI 27.1
== END | disposition home or self-care (01) ==
LOC: D.US 10:35
DX: I12.9 Hypertensive chronic kidney disease with stage 1 through stage 4 chronic kidney disease, or unspecified chronic kidney disease (principal); N18.4 Chronic kidney disease, stage 4 (severe); D64.9 Anemia, unspecified; N25.81 Secondary hyperparathyroidism of renal origin; Z68.27 Body mass index [BMI] 27.0-27.9, adult

== ENCOUNTER → 2018-10-18 09:45 | Outpatient (CLI) | payer MEDICARE ==
[2018-07-29 14:33] VITALS: BMI 27.1
== END | disposition home or self-care (01) ==
LOC: D.MRI 09:45
DX: D64.9 Anemia, unspecified (principal); Z68.27 Body mass index [BMI] 27.0-27.9, adult; I12.9 Hypertensive chronic kidney disease with stage 1 through stage 4 chronic kidney disease, or unspecified chronic kidney disease; N18.4 Chronic kidney disease, stage 4 (severe); N25.81 Secondary hyperparathyroidism of renal origin

== ENCOUNTER 2019-02-15 23:53 | Emergency (ER) | payer MEDICARE ==
[~2019-02-15] VITALS: Ht 170.2 cm; Wt 65.0 kg
[2019-02-15 23:59] VITALS: Ht 170.2 cm; Wt 65.0 kg
[2019-02-16] MEDS ORDERED: FOLBIC RF TABL1 EACH PO
[2019-02-16] MEDS ORDERED: FUROSEMIDE20 MG PO (00:03)
[2019-02-16] MEDS ORDERED: GLIMEPIRIDE1 MG PO (00:04)
[2019-02-16] MEDS ORDERED: CATAPRES0.1 MG PO (00:05)
[2019-02-16] MEDS ORDERED: HYDRALAZINE HCL25 MG (00:05)
[2019-02-16] MEDS ORDERED: SODIUM BICARBO650 MG PO (00:07)
[2019-02-16 00:51] LABS: BASOPHILS 0.3 % (0-2); EOSINOPHILS 3.1 % (0-7); HEMATOCRIT 23.3 % (36.0-48.0); IMMATURE GRANULOCYTES 0.2 % (0-5); LYMPHOCYTES 18.5 % (15-50); MCH 29.4 pg (26.0-34.0); MCHC 32.2 g/dL (31.0-37.0); MCV 91.4 fL (80.0-100.0); MEAN PLATELET VOLUME 8.4 fL (7.4-10.4); NEUTROPHILS 69.9 % (40-80); PLATELET COUNT 233 10x3/uL (130-400); RBC 2.55 10x6/uL (4.00-5.40); RDW 13.5 % (11.5-14.5); WBC 6.1 10x3/uL (4.8-10.8)
[2019-02-16 00:58] LABS: HEMOGLOBIN 7.5 g/dL (12-16)
[2019-02-16 01:02] LABS: INR 1.16 (0.85-1.17); PROTIME 14.2 SECONDS (11.6-15.0)
[2019-02-16 01:03] LABS: APTT 34.8 SECONDS (22.8-39.4)
[2019-02-16 01:15] LABS: ALBUMIN 2.8 g/dL (3.4-5.0); ALKALINE PHOSPHATASE 64 U/L (46-116); ALT (SGPT) 16 U/L (10-68); CALC OSMOLALITY 299 mosm/kg (275-300); CALCIUM 7.7 mg/dL (8.5-10.1); CARBON DIOXIDE 22.7 mmol/L (21.0-32.0); CHLORIDE - SERUM 102 mmol/L (98-107); CREATININE - SERUM 4.2 mg/dL (0.6-1.3); GLUCOSE 124 mg/dL (74-106); POTASSIUM - SERUM 4.5 mmol/L (3.5-5.1); PROTEIN - SERUM 7.8 g/dL (6.4-8.2); SODIUM 137 mmol/L (136-145); UREA NITROGEN 82 mg/dL (7-18); eGFR NON AFRICAN AMERICAN 11 mL/min (90-120)
[2019-02-16 01:38] LABS: CKMB 0.4 U/L (0.0-3.6); CREATINE KINASE 62 UL (21-215); THYROID STIMULATING HORMONE 3.18 uIU/mL (0.36-3.74)
[2019-02-16 01:39] LABS: TROPONIN-I < 0.017 ng/mL (0.000-0.060)
[2019-02-16 01:48] LABS: % SATURATION 19 % (15-55); IRON 40 ug/dl (35-150); TOTAL IRON BIND CAPACITY 209 ug/dl (260-445); UNSAT IRON BIND CAPACITY 169 ug/dl (150-375)
[2019-02-16 02:25] LABS: APPEARANCE CLEAR (CLEAR); BILIRUBIN NEGATIVE (NEGATIVE); COLOR YELLOW (YELLOW); GLUCOSE NEGATIVE (NEGATIVE); KETONE NEGATIVE (NEGATIVE); NITRITE NEGATIVE (NEGATIVE); PROTEIN 2+ mg/dL (NEGATIVE); UROBILINOGEN NORMAL (NORMAL); WHITE CELLS - URINE RARE /hpf (0-5)
[2019-02-16 03:24] VITALS: BP 177/75
[2019-02-16 09:42] LABS: PATH REVIEW PERIPHERAL SMEAR REVIEWED
[2019-02-18 06:12] LABS: FOLATE (FOLIC ACID) - SERUM >20.0 ng/mL (>3.0)
== END 2019-02-16 03:24 | disposition home or self-care (01) ==
LOC: D.ER 23:53
PROVIDERS: Family Medicine
DX: R53.1 Weakness (principal); I12.9 Hypertensive chronic kidney disease with stage 1 through stage 4 chronic kidney disease, or unspecified chronic kidney disease; N18.4 Chronic kidney disease, stage 4 (severe); D63.1 Anemia in chronic kidney disease

== ENCOUNTER → 2019-02-20 13:00 | Outpatient (CLI) | payer MEDICARE ==
[2019-02-15 23:59] VITALS: BMI 22.4
[~2019-02-20 13:00] MED LIST changes: +CATAPRES0.1 MG PO; +FOLBIC RF TABL1 EACH PO; +FUROSEMIDE20 MG PO; +GLIMEPIRIDE1 MG PO; +HYDRALAZINE HCL25 MG; +SODIUM BICARBO650 MG PO
[2019-02-20 13:31] LABS: BASOPHILS 0.3 % (0-2); HEMATOCRIT 26.5 % (36.0-48.0); HEMOGLOBIN 8.5 g/dL (12-16); IMMATURE GRANULOCYTES 0.1 % (0-5); LYMPHOCYTES 16.6 % (15-50); MCH 29.9 pg (26.0-34.0); MCHC 32.1 g/dL (31.0-37.0); MCV 93.3 fL (80.0-100.0); MONOCYTES 4.6 % (2-11); NEUTROPHILS 75.4 % (40-80); PLATELET COUNT 266 10x3/uL (130-400); RBC 2.84 10x6/uL (4.00-5.40); RDW 13.4 % (11.5-14.5); WBC 6.8 10x3/uL (4.8-10.8)
[2019-02-20 14:00] LABS: ANION GAP 17.5 mmol/L (8-16); CARBON DIOXIDE 19.2 mmol/L (21.0-32.0); CREATININE - SERUM 4.1 mg/dL (0.6-1.3); POTASSIUM - SERUM 4.7 mmol/L (3.5-5.1)
== END | disposition home or self-care (01) ==
LOC: D.LAB 13:00
PROVIDERS: ATTEND Internal Medicine Nephrology
DX: I12.9 Hypertensive chronic kidney disease with stage 1 through stage 4 chronic kidney disease, or unspecified chronic kidney disease (principal); N18.5 Chronic kidney disease, stage 5; D64.9 Anemia, unspecified; N25.81 Secondary hyperparathyroidism of renal origin

== ENCOUNTER 2019-05-24 12:37 | Observation (INO) | payer MEDICARE ==
[~2019-05-24] VITALS: Ht 170.2 cm; Wt 72.9 kg
[2019-05-24 13:11] LABS: BASOPHILS 0.5 % (0-2); EOSINOPHILS 2.9 % (0-7); HEMATOCRIT 26.6 % (36.0-48.0); HEMOGLOBIN 8.6 g/dL (12-16); IMMATURE GRANULOCYTES 0.2 % (0-5); LYMPHOCYTES 15.8 % (15-50); MCH 29.8 pg (26.0-34.0); MCHC 32.3 g/dL (31.0-37.0); MEAN PLATELET VOLUME 8.7 fL (7.4-10.4); MONOCYTES 8.3 % (2-11); NEUTROPHILS 72.3 % (40-80); PLATELET COUNT 246 10x3/uL (130-400); RBC 2.89 10x6/uL (4.00-5.40); RDW 13.9 % (11.5-14.5); WBC 5.5 10x3/uL (4.8-10.8)
[2019-05-24 13:23] LABS: ALBUMIN 3.3 g/dL (3.4-5.0); ALKALINE PHOSPHATASE 70 U/L (46-116); ALT (SGPT) 16 U/L (10-68); BILIRUBIN - TOTAL 0.27 mg/dL (0.2-1.3); CALC OSMOLALITY 301 mosm/kg (275-300); CALCIUM 9.2 mg/dL (8.5-10.1); CARBON DIOXIDE 20.1 mmol/L (21.0-32.0); CHLORIDE - SERUM 104 mmol/L (98-107); CREATININE - SERUM 3.7 mg/dL (0.6-1.3); GLUCOSE 164 mg/dL (74-106); POTASSIUM - SERUM 4.4 mmol/L (3.5-5.1); PROTEIN - SERUM 8.1 g/dL (6.4-8.2); SODIUM 138 mmol/L (136-145); UREA NITROGEN 73 mg/dL (7-18); eGFR NON AFRICAN AMERICAN 12 mL/min (90-120)
[2019-05-24 13:28] LABS: TROPONIN-I < 0.017 ng/mL (0.000-0.060)
[2019-05-24 14:00] VITALS: BP 163/67
--- NOTE | 2019-05-24 14:18 | NUR ---
PT LEAVING ED AT THIS TIME FOR ORDERED CT SCAN. NO SIGNS OF DISTRESS NOTED.
[2019-05-24 14:27] LABS: INR 1.76 (0.85-1.17); PROTIME 19.9 SECONDS (11.6-15.0)
[2019-05-24 14:34] LABS: AMYLASE - SERUM 109 U/L (25-115); CKMB 0.6 U/L (0.0-3.6); CREATINE KINASE 71 UL (21-215); LIPASE 296 U/L (73-393); MAGNESIUM - SERUM 2.4 mg/dL (1.8-2.4); THYROID STIMULATING HORMONE 1.98 uIU/mL (0.36-3.74); TROPONIN-I < 0.017 ng/mL (0.000-0.060)
[2019-05-24 14:41] LABS: APTT 53.2 SECONDS (22.8-39.4)
[2019-05-24 15:01] VITALS: BP 140/58
--- NOTE | 2019-05-24 15:23 | NUR ---
URINE SAMPLE SENT TO LAB, OCCULT BLOOD STOOL SAMPLE POSITIVE. EDP NOTIFIED.
[2019-05-24 15:47] LABS: APPEARANCE CLEAR (CLEAR); BILIRUBIN NEGATIVE (NEGATIVE); COLOR STRAW (YELLOW); GLUCOSE NEGATIVE (NEGATIVE); KETONE NEGATIVE (NEGATIVE); NITRITE NEGATIVE (NEGATIVE); PROTEIN 1+ mg/dL (NEGATIVE); UROBILINOGEN NORMAL (NORMAL)
[2019-05-24 17:00] VITALS: BP 168/64
--- NOTE | 2019-05-24 17:34 | NUR ---
PT AWARE SHE IS BEING ADMITTED TO [facility], AWAITING BED ASSIGNMENT. RESPIRATIONS EVEN AND UNLABORED. PT AWARE THAT CLEAR LIQUID DIET IS ORDERED, MEAL TRAY ORDERED. CALL LIGHT IN REACH, WILL CONTINUE TO MONITOR.
[2019-05-24 18:07] VITALS: BP 177/69
--- NOTE | 2019-05-24 18:36 | NUR ---
MEAL TRAY ARRIVED TO ED, THIS NURSE DELIVERED MEAL TRAY. PT C/O WAIT TIME FOR MEAL TRAY AND WAIT TIME FOR ROOM ASSIGNMENT. PT DENIES ANY FURTHER NEEDS. CALL LIGHT IN REACH. WILL CONTINUE TO MONITOR.
--- NOTE | 2019-05-24 18:39 | NUR ---
ROOM 2107 ASSIGNED AT 1828. THIS NURSE BEGAN ATTEMPTING TO CALL REPORT AT 1838.
--- NOTE | 2019-05-24 18:48 | NUR ---
BLOOD SUGAR 181
--- NOTE | 2019-05-24 19:00 | NUR ---
HAND OFF REPORT GIVEN TO YUSEF DOLL. ATTEMPTED TO CALL REPORT TO RECEIVING NURSE WHO WAS NOT AVAILABLE.
--- NOTE | 2019-05-24 22:50 | NUR ---
RECIEVED REPORT FROM [facility], PT ARRIVED ON STRETCHER. INITIAL ASSESSMENT COMPLETED. VSS, WITH SBP>170. CARSON MANNING NOTIFIED. PT AAOX3, BUT APPEARS AGITATED. STATES IT TOOK SO LONG TO LA HER A BED IN ER. NS INFUSING @ 75, PROTONIX DRIP @ 10MLS/HR. PT DENIES ANY PAIN AT THIS TIME. PT IS A GOOD HX. FSBS 100. NO INSULING GIVEN. PT DENIES ANY FURTHER NEEDS FOR COMFORT CARE. WILL CPOC. CL WITHIN REACH, BED IN LOW SR UP X2.
[2019-05-24] MEDS ORDERED: HYDRALAZINE HCL50 MG PO (22:51)
[2019-05-24 22:58] VITALS: BP 165/58; Ht 170.2 cm; Wt 72.9 kg
--- NOTE | 2019-05-25 | NUR ---
NOTIFIED BAG PATCHER ABOUT PT'S HIGH BP. APRESOLINE PRN ORDERED. WILL REASSESS PT AND ADMINISTER MED IF NECESSARY.
[2019-05-25 00:13] VITALS: BP 159/53
--- NOTE | 2019-05-25 03:20 | NUR ---
PT HAS CONTINUOSLY C/O OF HER "PT CARE" SHE STATES THE SERVICE IS BAD. WHEN ASKED WHAT SHE NEEDS TO BE DONE FOR HER, SHE REFUSED TO SPEAK. SHE STATES SHE IS JUST AGGRAVATED ON HOW SHE WAS TREATED IN THE ER, STATES " I WAS IN THE ER FOR 12 HOURS AND NOTHING WAS DONE, I EVEN PEE'D ON MY DEPENDS." WHEN I OFFERED TO CHANGE PT DEPENDS AT THIS TIME. SHE REFUSED. STATES SHE WANTED TO SLEEP, SHE STATES SHE WILL CHANGE HER DEPENDS OUT WHEN SHE WAKES.IV PROTONIX INFUSING ALONGSIDE NS. WILL CPOC.
[2019-05-25 04:44] VITALS: BP 180/70
--- NOTE | 2019-05-25 04:55 | NUR ---
PT'S BP 180/70. PRN APRESOLINE ADMINISTERED. PT STILL C/O ABOUT CARE, STATES SHE HAS BEEN TOP CLOSER LIGHT. NOTIFIED PT THAT HER CALL WAS NEVER RECIEVED ON THE NURSES STATION. REASSURED HER THAT WE WOULD HAVE COME TO ASSIST IF WE SAW HER CALL. HELP ASSIST PT TO BATHROOM, CHANGE PT, AND PROVIDED FRESH LINENS AND GOWNS. PT VOICED THANKS. PT STATES SHE WOULD LIKE TO PUT ON HER RED WROBE WHEN SHE DC. BUT I NOTIFIED HER THAT IT IS WET AT THIS TIME.
[2019-05-25 05:31] LABS: BASOPHILS 0.2 % (0-2); EOSINOPHILS 3.3 % (0-7); HEMATOCRIT 25.7 % (36.0-48.0); HEMOGLOBIN 8.2 g/dL (12-16); IMMATURE GRANULOCYTES 0.2 % (0-5); MCH 29.5 pg (26.0-34.0); MCHC 31.9 g/dL (31.0-37.0); MCV 92.4 fL (80.0-100.0); MEAN PLATELET VOLUME 9.3 fL (7.4-10.4); MONOCYTES 8.4 % (2-11); NEUTROPHILS 67.9 % (40-80); PLATELET COUNT 261 10x3/uL (130-400); RBC 2.78 10x6/uL (4.00-5.40); RDW 13.8 % (11.5-14.5); WBC 5.7 10x3/uL (4.8-10.8)
[2019-05-25 05:59] LABS: ANION GAP 17.2 mmol/L (8-16); CALCIUM 8.5 mg/dL (8.5-10.1); CARBON DIOXIDE 21.3 mmol/L (21.0-32.0); CREATININE - SERUM 3.3 mg/dL (0.6-1.3); MAGNESIUM - SERUM 2.2 mg/dL (1.8-2.4); PHOSPHOROUS 4.4 mg/dL (2.5-4.9); POTASSIUM - SERUM 4.5 mmol/L (3.5-5.1)
--- NOTE | 2019-05-25 08:40 | NUR ---
PATIENT IS SITTING UP IN BED. DRINKING HER CLEAR LIQUID BREAKFAST. SHE HAD A BROKEN CALL LIGHT, AND WE FIXED IT IMMEDIATELY. SHE REPORTED THAT SHE WAS LAYING IN STOOL AND HER BED WAS DIRTY, HOWEVER WHEN I CHECKED HER SHE WAS DRY AND HER BED WAS DRY BUT SHE NEEDED ASSISTANCE TO THE BATHROOM. SHE NEEDS A WALKER AT BEDSIDE, AND ONE PERSON ASSIST. SHE STATES THAT SHE IS FRUSTRATED THAT SHE SAT IN THE ER SO LONG YESTERDAY, AND SHE SAYS THAT SHE HAS HAD A TERRIBLE TIME, HERE AT THE HOSPITAL.
[2019-05-25 08:55] VITALS: BP 182/68
[2019-05-25 12:01] LABS: % SATURATION 19 % (15-55); IRON 39 ug/dl (35-150); TOTAL IRON BIND CAPACITY 204 ug/dl (260-445); UNSAT IRON BIND CAPACITY 165 ug/dl (150-375)
[2019-05-25 12:31] VITALS: BP 175/139
[2019-05-25 15:36] VITALS: BP 151/58
--- NOTE | 2019-05-25 16:00 | NUR ---
Rehab Note- Acute Inpatient Rehab prescreen order received. The patient has [facility] insurance and will require a PreAuth prior to an inpatient acute rehab stay- the patient has had both PT & OT EVals & noted to be too high level for inpatient acute rehab at this time. Thank you for this referral! Shellie Sanchez RN CLincial Liaison, [facility] Rehab
[2019-05-25 20:00] VITALS: BP 177/68
[2019-05-26] VITALS: BP 152/68
--- NOTE | 2019-05-26 00:43 | NUR ---
PT PULLED OUT HER IV WHEN SHE WAS TRYING TO GET OOB. NO SIGNIFICANT BLEEDING NOTED. APPLIED GAUZE AND TAPE. RESTART A NEW PIV 22G LFA X1 STICK. PT TOLERATE WELL. IV NS INFUSING @50MLS/HR. PT DENIES ANY FURTHER NEEDS AT THIS TIME. WILL CPOC. CL WITHIN REACH.
[2019-05-26 04:00] VITALS: BP 164/67
[2019-05-26 05:28] LABS: BASOPHILS 0.4 % (0-2); HEMOGLOBIN 7.7 g/dL (12-16); IMMATURE GRANULOCYTES 0.2 % (0-5); MCHC 32.1 g/dL (31.0-37.0); MCV 93.4 fL (80.0-100.0); MEAN PLATELET VOLUME 8.9 fL (7.4-10.4); MONOCYTES 11.3 % (2-11); NEUTROPHILS 61.1 % (40-80); PLATELET COUNT 217 10x3/uL (130-400); RBC 2.57 10x6/uL (4.00-5.40); RDW 14.1 % (11.5-14.5); WBC 4.8 10x3/uL (4.8-10.8)
[2019-05-26 05:55] LABS: ANION GAP 15.3 mmol/L (8-16); CALCIUM 8.3 mg/dL (8.5-10.1); CARBON DIOXIDE 20.2 mmol/L (21.0-32.0); CREATININE - SERUM 3.2 mg/dL (0.6-1.3); POTASSIUM - SERUM 4.5 mmol/L (3.5-5.1)
--- NOTE | 2019-05-26 07:46 | NUR ---
PATIENT IS SITTING UP IN BED, IV INFUSING ORDERED. PATIENT DENIES ANY NEEDS AT THIS TIME.
[2019-05-26 08:00] VITALS: BP 181/69
[2019-05-26 11:00] VITALS: BP 171/68
--- NOTE | 2019-05-26 11:53 | NUR ---
OT NOTE: PT PERFORMED BED MOB WITH SBA; ABLE TO FEED SELF WHILE SITTING ON EOB, HOWEVER, CONTINUES TO COMPLAIN ABOUT FOOD. AMB TO BATHROOM WITH COIN MACHINE OPERATOR AND MIN ASSIST FOR BALANCE; TOILETING WITH MIN ASSIST FOR HYGIENE AND MIN ASSIST TO LUZ ELENA PULL UPS. HANK HAN, OTR/L
--- NOTE | 2019-05-26 14:55 | NUR ---
OT NOTE: PT COMPLETED BED MOB WITH CGA. PT COMPLETED ADL MOB WITH CGA. PT COMPLETED TOILETING TASKS WITH SBA. THANK YOU, CANDY BLANCHARD
[2019-05-26 16:23] VITALS: BP 174/66
--- NOTE | 2019-05-26 16:37 | MORECARE ---
CASE MANAGEMENT DISCHARGE SUMMARY PATIENT: SANITNO VALIENTE UNIT: [id number] ADM DATE: 05/24/19 AGE: 89 : 30 SEX: F ROOM/BED: D.2107 AUTHOR: NICHOL MADRID PHYSICIAN: REFERRING PHYSICIAN: CHRISTAL MILLER DO DATE OF SERVICE: 05/26/19 Discharge Plan Patient Name: SANTINO VAL[facility]E [facility] [facility] 1930 Planned Disposition: Home Anticipated Discharge Date: Discharge Date: Expected LOS: Initial Reviewer: [id number] Initial Review Date: 05/24/2019 Generated: 05/26/19 5:37 pm DCPIA - Discharge Planning Initial Assessment Updated by CHRISTOPHER: Michael Magdaleno on 05/26/19 4:37 pm * Is the patient Alert and Oriented? Yes * How many steps to enter\exit or inside your home? 1 W/ RAIL * PCP DR. HELM * Pharmacy [facility] * Preadmission Environment Home with Family * ADLs Independent * Equipment Cane Walker Wheelchair * Other Equipment NO MEDICAL EQUIPMENT PROVIDER PREFERENCE * List name and contact numbers for known caregivers / representatives who currently or will assist patient after discharge: MARIAELENA ALVARADO, DTR, * Verbal permission to speak to the caregivers and representatives has been obtained from the patient. Yes * Community resources currently utilized None * Please name any agencies selected above. NONE * Additional services required to return to the preadmission environment? No * Can the patient safely return to the preadmission environment? Yes * Has this patient been hospitalized within the prior 30 days at any hospital? No Patient Name: SANTINO VALIENTE Page [id number] at 1637 All edits/amendments must be made on the electronic document DICTATION DATE: 05/26/191635 CLINICAL MEDICAL TRANSCRIPTIONIST: HARISH 05/26/191635 RPT#: [id number] DC DATE: STATUS: ADM IN [facility] [address] [place] [address] END OF REPORT
--- NOTE | 2019-05-26 16:45 | MORECARE ---
CASE MANAGEMENT DISCHARGE SUMMARY PATIENT: SANTINO VALIENTE UNIT: [id number] ADM DATE: 05/24/19 AGE: 89 : 30 SEX: F ROOM/BED: D.4587 AUTHOR: MERCY,DOC PHYSICIAN: REFERRING PHYSICIAN: CHRISTAL MILLER DO DATE OF SERVICE: 05/26/19 Discharge Plan Patient Name: SANTINO VALIENTE Facility: [facility]:[place] : 1930 Planned Disposition: Home Anticipated Discharge Date: Discharge Date: Expected LOS: Initial Reviewer: [id number] Initial Review Date: 05/24/2019 Generated: 05/26/19 5:45 pm DCP- Discharge Planning Updated by [email or web address]: Michael Magdaleno on 05/26/19 3:[address] Patient Name: SANTINO VALIENTE Admission Status: ER Accout number: [id number] Admission Date: 05-24-2019 : 1930 Admission Diagnosis:DIZZINESS AND GIDDINESS Attending: CHRISTAL MILLER Current LOS: 2 Anticipated DC Date: Planned Disposition: Home Primary Insurance: [facility] MEDICARE SOLUTIONS Discharge Planning Comments: CM RECEIVED ORDER FOR INPATIENT REHAB PRESCREENING. CM MET WITH PT IN ROOM TO DISCUSS DISCHARGE PLANNING AND NEEDS. PT REPORTS LIVING AT HOME INDEPENDENTLY AND HER DAUGHTER HAS RECENTLY MOVED IN TO ASSIST NEEDED. PT DOES NOT GET INTO THE BATHTUB SHE IS NOT ABLE TO RAISE HER LEG HIGH ENOUGH AND WASHES WITH A CLOTH.. PT HAS CANE, WALKER AND WHEELCHAIR WITH NO MEDICAL EQUIPMENT PROVIDER PREFERENCE. PT HAS NO OUTSIDE SERVICES ASSISTING IN THE HOME. CM DISCUSSED AVAILABILITY OF HOME HEALTH, REHAB SERVICES AND MEDICAL EQUIPMENT. PT DENIES DISCHARGE NEEDS, DECLINES INPATIENT REHAB AND HOME HEALTH. PT STATES SHE IS NOT CAPABLE OF ANY THERAPY SERVICES. PT REPORTS HER DUAGHTER WILL PICK HER UP FOR DISCHARGE HOME. IMPORTANT MESSAGE FROM MEDICARE PROVIDED AND EXPLAINED. PT DECLINES REHAB AND HOME HEALTH, REPORTS SHE WILL DISCHARGE HOME WITH ASSISTANCE OF DAUGHTER WHO WILL ALSO TRANSPORT HOME AT DISCHARGE. CM TO FOLLOW AND ASSIST NEEDED. Cottrell Blower: Michael Magdaleno DCPIA - Discharge Planning Initial Assessment Updated by [id number]: Michael Magdaleno on 05/26/19 4:37 pm * Is the patient Alert and Oriented? Yes * How many steps to enter\exit or inside your home? 1 W/ RAIL * PCP DR. HELM * Pharmacy [facility] * Preadmission Environment Home with Family * ADLs Independent * Equipment Cane Walker Wheelchair * Other Equipment NO MEDICAL EQUIPMENT PROVIDER PREFERENCE * List name and contact numbers for known caregivers / representatives who currently or will assist patient after discharge: MARIAELENA ALVARADO, DTR, * Verbal permission to speak to the caregivers and representatives has been obtained from the patient. Yes * Community resources currently utilized None * Please name any agencies selected above. NONE * Additional services required to return to the preadmission environment? No * Can the patient safely return to the preadmission environment? Yes * Has this patient been hospitalized within the prior 30 days at any hospital? No Coverage Notice Reviewer: [id number] Jennifer Magdaleno Notice Issued Date-Time: 05/26/2019 9:50 Notice Type: IM Discharge Notice Notice Delivered To: Patient Relationship to Patient: Can Runner Name: Delivery Method: HAND - Hand Delivered Suzy Days: Prior Verbal Notification: Recipient Understood Notice: Yes Recipient Signature: Yes Med Rec Note Co-signed by Attending: Coverage Notice Comment: Last DP export: 05/26/19 3:37 p Patient Name: SANTINO VALIENTE Page [id number] at 1645 All edits/amendments must be made on the electronic document DICTATION DATE: 05/26/191644 CROZE MACHINE OPERATOR: HARISH 05/26/191644 RPT#: [id number] DC DATE: STATUS: ADM IN [facility] [address] [place] [address] END OF REPORT
--- NOTE | 2019-05-26 19:18 | NUR ---
PATIENT COMPLETED FIRST UNIT OF BLOOD. NO COMPLAINTS AT THIS TIME.
--- NOTE | 2019-05-26 19:29 | NUR ---
PT IN BED. REQUESTS FEMALE AID TO TAKE HER TO THE BATHROOM. DENIES FURTHER NEEDS AT THIS TIME.
[2019-05-26 20:00] VITALS: BP 173/77
[2019-05-27] VITALS: BP 164/69
[2019-05-27 04:00] VITALS: BP 188/79
[2019-05-27 04:59] LABS: BASOPHILS 0.3 % (0-2); IMMATURE GRANULOCYTES 0.4 % (0-5); LYMPHOCYTES 17.3 % (15-50); MCH 28.9 pg (26.0-34.0); MCHC 33.2 g/dL (31.0-37.0); MEAN PLATELET VOLUME 9.1 fL (7.4-10.4); MONOCYTES 7.7 % (2-11); NEUTROPHILS 70.3 % (40-80); PLATELET COUNT 214 10x3/uL (130-400); RDW 16.9 % (11.5-14.5)
[2019-05-27 05:13] LABS: ANION GAP 16.6 mmol/L (8-16); CALCIUM 8.8 mg/dL (8.5-10.1); CARBON DIOXIDE 19.1 mmol/L (21.0-32.0); CREATININE - SERUM 2.9 mg/dL (0.6-1.3); MAGNESIUM - SERUM 1.9 mg/dL (1.8-2.4); PHOSPHOROUS 3.2 mg/dL (2.5-4.9); POTASSIUM - SERUM 4.7 mmol/L (3.5-5.1)
[2019-05-27 05:14] LABS: HEMATOCRIT 31.9 % (36.0-48.0); HEMOGLOBIN 10.6 g/dL (12-16); MCV 86.9 fL (80.0-100.0); RBC 3.67 10x6/uL (4.00-5.40); WBC 7.5 10x3/uL (4.8-10.8)
--- NOTE | 2019-05-27 07:21 | NUR ---
REPORT RECEIVED FROM ENTRY LEVEL ACCOUNT EXECUTIVE AND PATIENT CARE ASSUMED. PATIENT LAYING IN BED AWAKE, ALERT AND ORIENTED X 4. PATIENT IS COMPLAINING THAT SHE PUSHED HER CALL LIGHT QUITE A WHILE AGO AND THAT SHE IS BEING IGNORED BECAUSE NO ONE IS HELPING HER. I SHOWED HER CALL LIGHT AND THAT SHE HAD NOT PUSHED THE BUTTON . I PUSHED THE CALL LIGHT BUTTON AND LIGHT CAME IMMEDIATELY ON. I APOLOGIZED THAT SHE WAS UPSET AND AND IMMEDIATELY HELPED HER TO THE BR. PATIENT VOIDED. STRAIGTENED BED LINENS AND ASSISTED PATIENT BACK TO BED. AGAIN ORIENTED PATIENT TO CALL LIGHT AND PLACED IN REACH. BED IN LOW POSITION AND SR UP X 2 .
[2019-05-27] MEDS ORDERED: HYDRALAZINE HCL50 MG PO (11:21)
[2019-05-27] MEDS ORDERED: ANUSOL-HC 2.5%30 GM RC (11:22)
[2019-05-27] MEDS ORDERED: MECLIZINE HCL25 MG PO (11:22)
[2019-05-27] MEDS ORDERED: ANUSOL-HC25 MG RC (11:23)
[2019-05-27 13:08] VITALS: BP 167/66
--- NOTE | 2019-05-27 13:28 | NUR ---
PATIENT IS STABLE AND VSS. PATIENT DENIES ANY NEEDS OR PAIN. ORDERS RECEIVED FOR DC. WRITTEN AND VERBAL INSTRUCTIONS GIVEN. PATIENT VERABLIZED UMDERSTANDING AND SIGNED PAPERWORK. IV DCD WITHOUT DIFFICULTY WITH ENTIRE CATHETER INTACT. PATIENT TO FRONT DOOR VIA WC AND HOSPITAL PERSONNEL TO PRIVATE VEHICLE DRIVEN BY DTR.
--- NOTE | 2019-05-29 08:41 | MORECARE ---
CASE MANAGEMENT DISCHARGE SUMMARY PATIENT: SANTINO VALIENTE UNIT: [id number] ADM DATE: 05/24/19 AGE: 89 : 30 SEX: F ROOM/BED: D.4945 AUTHOR: MERCY,DOC PHYSICIAN: REFERRING PHYSICIAN: CHRISTAL MILLER DO DATE OF SERVICE: 05/29/19 Discharge Plan Patient Name: SANTINO VALIENTE Facility: [facility]:[place] : 1930 Planned Disposition: Home Anticipated Discharge Date: 05/27/19 Discharge Date: 05/27/2019 Expected LOS: 3 Initial Reviewer: [id number] Initial Review Date: 05/24/2019 Generated: 05/29/19 9:40 am DCP- Discharge Planning Updated by CHRISTOPHER: Michael Magdaleno on 05/26/19 3:[address] Patient Name: SANTINO VALIENTE Admission Status: ER Accout number: [id number] Admission Date: 05-24-2019 : 1930 Admission Diagnosis:DIZZINESS AND GIDDINESS Attending: CHRISTAL MILLER Current LOS: 2 Anticipated DC Date: Planned Disposition: Home Primary Insurance: [facility] MEDICARE SOLUTIONS Discharge Planning Comments: CM RECEIVED ORDER FOR INPATIENT REHAB PRESCREENING. CM MET WITH PT IN ROOM TO DISCUSS DISCHARGE PLANNING AND NEEDS. PT REPORTS LIVING AT HOME INDEPENDENTLY AND HER DAUGHTER HAS RECENTLY MOVED IN TO ASSIST NEEDED. PT DOES NOT GET INTO THE BATHTUB SHE IS NOT ABLE TO RAISE HER LEG HIGH ENOUGH AND WASHES WITH A CLOTH.. PT HAS CANE, WALKER AND WHEELCHAIR WITH NO MEDICAL EQUIPMENT PROVIDER PREFERENCE. PT HAS NO OUTSIDE SERVICES ASSISTING IN THE HOME. CM DISCUSSED AVAILABILITY OF HOME HEALTH, REHAB SERVICES AND MEDICAL EQUIPMENT. PT DENIES DISCHARGE NEEDS, DECLINES INPATIENT REHAB AND HOME HEALTH. PT STATES SHE IS NOT CAPABLE OF ANY THERAPY SERVICES. PT REPORTS HER DUAGHTER WILL PICK HER UP FOR DISCHARGE HOME. IMPORTANT MESSAGE FROM MEDICARE PROVIDED AND EXPLAINED. PT DECLINES REHAB AND HOME HEALTH, REPORTS SHE WILL DISCHARGE HOME WITH ASSISTANCE OF DAUGHTER WHO WILL ALSO TRANSPORT HOME AT DISCHARGE. CM TO FOLLOW AND ASSIST NEEDED. Beer Cooler: Michael Magdaleno DCPIA - Discharge Planning Initial Assessment Updated by [email or web address]: Michael Magdaleno on 05/26/19 4:37 pm * Is the patient Alert and Oriented? Yes * How many steps to enter\exit or inside your home? 1 W/ RAIL * PCP DR. HELM * Pharmacy [facility] [place] * Preadmission Environment Home with Family * ADLs Independent * Equipment Cane Walker Wheelchair * Other Equipment NO MEDICAL EQUIPMENT PROVIDER PREFERENCE * List name and contact numbers for known caregivers / representatives who currently or will assist patient after discharge: MARIAELENA ALVARADO, DTR, * Verbal permission to speak to the caregivers and representatives has been obtained from the patient. Yes * Community resources currently utilized None * Please name any agencies selected above. NONE * Additional services required to return to the preadmission environment? No * Can the patient safely return to the preadmission environment? Yes * Has this patient been hospitalized within the prior 30 days at any hospital? No Coverage Notice Reviewer: [id number] Jennifer Magdaleno Notice Issued Date-Time: 05/26/2019 9:50 Notice Type: IM Discharge Notice Notice Delivered To: Patient Relationship to Patient: Hat Body Sorter Name: Delivery Method: HAND - Hand Delivered Suzy Days: Prior Verbal Notification: Recipient Understood Notice: Yes Recipient Signature: Yes Med Rec Note Co-signed by Attending: Coverage Notice Comment: Last DP export: 05/26/19 3:45 p Patient Name: SANTINO VALIENTE Page [id number] at 0841 All edits/amendments must be made on the electronic document DICTATION DATE: 05/29/19839 MONOMER RECOVERY OPERATOR: HARISH 05/29/19839 RPT#: [id number] DC DATE:05/27/19 STATUS: DIS IN [facility] [address] [place] [address] END OF REPORT
== END 2019-05-27 13:33 | disposition home or self-care (01) ==
LOC: D.ER 12:37 → D.M2 18:28 → OBSVTIME 18:28 → D.ER 18:28 → D.M2 18:28
PROVIDERS: Family Medicine; Internal Medicine Nephrology; ADMIT Family Medicine; ATTEND Family Medicine
DX: K92.2 Gastrointestinal hemorrhage, unspecified (principal); N18.4 Chronic kidney disease, stage 4 (severe); R19.5 Other fecal abnormalities; R42 Dizziness and giddiness; E11.22 Type 2 diabetes mellitus with diabetic chronic kidney disease; I12.9 Hypertensive chronic kidney disease with stage 1 through stage 4 chronic kidney disease, or unspecified chronic kidney disease; E78.5 Hyperlipidemia, unspecified; N28.1 Cyst of kidney, acquired; D63.1 Anemia in chronic kidney disease

== ENCOUNTER 2020-01-13 11:42 | Inpatient (IN) | payer MEDICARE ==
[~2020-01-13 11:42] MED LIST changes: +ANUSOL-HC 2.5%30 GM RC; +ANUSOL-HC25 MG RC; +HYDRALAZINE HCL50 MG PO
[2020-01-13 12:35] VITALS: BP 146/51
[2020-01-13 12:45] LABS: BASOPHILS 0.5 % (0-2); EOSINOPHILS 3.5 % (0-7); HEMATOCRIT 27.4 % (36.0-48.0); HEMOGLOBIN 8.5 g/dL (12-16); IMMATURE GRANULOCYTES 0.2 % (0-5); LYMPHOCYTES 15.3 % (15-50); MCH 30.5 pg (26.0-34.0); MCV 98.2 fL (80.0-100.0); MEAN PLATELET VOLUME 9.5 fL (7.4-10.4); MONOCYTES 6.5 % (2-11); PLATELET COUNT 240 10x3/uL (130-400); RBC 2.79 10x6/uL (4.00-5.40); RDW 13.6 % (11.5-14.5); WBC 5.7 10x3/uL (4.8-10.8)
[2020-01-13 12:55] LABS: ANION GAP 19.1 mmol/L (8-16); CARBON DIOXIDE 21.6 mmol/L (21.0-32.0); CREATININE - SERUM 6.2 mg/dL (0.6-1.3); POTASSIUM - SERUM 4.7 mmol/L (3.5-5.1)
[2020-01-13 13:47] LABS: ALBUMIN 3.4 g/dL (3.4-5.0); BILIRUBIN - DIRECT 0.1 mg/dL (0.00-0.30); BILIRUBIN - INDIRECT 0.18 mg/dL (0.00-1.00); BILIRUBIN - TOTAL 0.28 mg/dL (0.2-1.3); MAGNESIUM - SERUM 1.9 mg/dL (1.8-2.4); PHOSPHOROUS 7.3 mg/dL (2.5-4.9); PROTEIN - SERUM 7.9 g/dL (6.4-8.2); THYROID STIMULATING HORMONE 2.75 uIU/mL (0.36-3.74)
[2020-01-13 14:36] LABS: % SATURATION 24 % (15-55); IRON 54 ug/dl (35-150); TOTAL IRON BIND CAPACITY 217 ug/dl (260-445); UNSAT IRON BIND CAPACITY 163 ug/dl (150-375)
[2020-01-13 14:45] VITALS: BP 158/59
[2020-01-13 15:07] LABS: BILIRUBIN NEGATIVE (NEGATIVE); GLUCOSE 100 mg/dL (NEGATIVE); KETONE NEGATIVE (NEGATIVE); NITRITE NEGATIVE (NEGATIVE); SPECIFIC GRAVITY 1.005 (1.005-1.020); UROBILINOGEN NORMAL (NORMAL)
[2020-01-13 15:13] LABS: EPITHELIAL CELLS 0-5 /hpf (0-5); RED CELLS - URINE 0-5 /hpf (0-5)
[2020-01-13 15:14] LABS: BACTERIA FEW /hpf (NEGATIVE)
[2020-01-13] MEDS ORDERED: ROCALTROL0.5 MCG PO (15:33)
[2020-01-13] MEDS ORDERED: HYDROCODON-ACE1 EAC2 PO (15:34)
[2020-01-13 20:00] VITALS: BP 153/55
[2020-01-14] VITALS: BP 156/55
[2020-01-14 03:45] VITALS: BP 153/55
[2020-01-14 04:00] VITALS: BP 175/69
[2020-01-14 05:19] LABS: BASOPHILS 0.3 % (0-2); EOSINOPHILS 4.4 % (0-7); HEMATOCRIT 24.8 % (36.0-48.0); HEMOGLOBIN 7.6 g/dL (12-16); IMMATURE GRANULOCYTES 0.3 % (0-5); LYMPHOCYTES 27.5 % (15-50); MCH 29.9 pg (26.0-34.0); MCHC 30.6 g/dL (31.0-37.0); MCV 97.6 fL (80.0-100.0); MEAN PLATELET VOLUME 9.7 fL (7.4-10.4); MONOCYTES 6.6 % (2-11); NEUTROPHILS 60.9 % (40-80); PLATELET COUNT 224 10x3/uL (130-400); RBC 2.54 10x6/uL (4.00-5.40); RDW 13.7 % (11.5-14.5); WBC 6.2 10x3/uL (4.8-10.8)
[2020-01-14 05:41] LABS: ANION GAP 18.5 mmol/L (8-16); CALCIUM 7.8 mg/dL (8.5-10.1); CARBON DIOXIDE 19.6 mmol/L (21.0-32.0); CREATININE - SERUM 5.8 mg/dL (0.6-1.3); POTASSIUM - SERUM 5.1 mmol/L (3.5-5.1)
[2020-01-14 09:25] VITALS: BP 176/77
[2020-01-14 14:00] VITALS: BP 158/60
[2020-01-14 20:00] VITALS: BP 177/67
[2020-01-15] VITALS: BP 199/88
[2020-01-15 04:00] VITALS: BP 181/77
[2020-01-15 06:20] LABS: BASOPHILS 0.2 % (0-2); EOSINOPHILS 1.5 % (0-7); IMMATURE GRANULOCYTES 0.3 % (0-5); LYMPHOCYTES 18.7 % (15-50); MCH 29.9 pg (26.0-34.0); MCHC 31.1 g/dL (31.0-37.0); MCV 96.1 fL (80.0-100.0); MONOCYTES 6.9 % (2-11); NEUTROPHILS 72.4 % (40-80); PLATELET COUNT 266 10x3/uL (130-400); RDW 14.9 % (11.5-14.5)
[2020-01-15 06:44] LABS: HEMATOCRIT 32.2 % (36.0-48.0); RBC 3.35 10x6/uL (4.00-5.40); WBC 9.2 10x3/uL (4.8-10.8)
[2020-01-15 06:45] LABS: ANION GAP 18.8 mmol/L (8-16); CALCIUM 8.1 mg/dL (8.5-10.1); CARBON DIOXIDE 19.3 mmol/L (21.0-32.0); CREATININE - SERUM 5.7 mg/dL (0.6-1.3); POTASSIUM - SERUM 5.1 mmol/L (3.5-5.1)
== END 2020-01-15 12:17 | DRG 683 ==
LOC: D.ER 11:42 → D.M2 13:25
PROVIDERS: Emergency Medicine; ADMIT Internal Medicine Nephrology; ATTEND Internal Medicine Nephrology
DX: N17.9 Acute kidney failure, unspecified (principal); I50.32 Chronic diastolic (congestive) heart failure; I13.0 Hypertensive heart and chronic kidney disease with heart failure and stage 1 through stage 4 chronic kidney disease, or unspecified chronic kidney disease; E11.22 Type 2 diabetes mellitus with diabetic chronic kidney disease; N18.4 Chronic kidney disease, stage 4 (severe); E78.5 Hyperlipidemia, unspecified; D63.1 Anemia in chronic kidney disease; M25.551 Pain in right hip; I46.9 Cardiac arrest, cause unspecified